=== PATIENT | female | born 1990 | race Caucasian/White ===

== ENCOUNTER → 2019-04-21 11:54 | Outpatient (CLI) | payer SELFPAY ==
--- NOTE | 2019-04-21 12:00 | US_ITS ---
STUDY: SECOND AND THIRD TRIMESTER OBSTETRICAL ULTRASOUND-LIMITED REASON FOR EXAM: Female, 28 years old dating, confirm viability LMP: 01/15/2019 TECHNIQUE: Transabdominal TECHNICAL QUALITY: Adequate. PRIOR ULTRASOUND: None. FINDINGS: There is a single intrauterine fetus. The fetus is moving throughout the exam. There is demonstrated cardiac activity with a heart rate of 136 bpm. There is a normal amniotic fluid volume. The largest amniotic fluid pocket measures 4.5 cm. . The placenta is anterior in location and is not low lying. There are Grade 0 placental changes. The cervix measures 3.3 cm in length. The bilateral adnexal regions are normal. BIOMETRY: BPD: 2.26 cm: 13 weeks, 6 days HC: 9.14 cm: 14 weeks, 1 days AC: 7.68 cm: 14 weeks, 1 days FL: 1.26 cm: 13 weeks, 6 days age by current US: 14 weeks, 1 days. CAMILA by current US: 10/19/2019. Estimated weight: 86 grams, +/- 13 grams, 48 %. US/Init OB < 14Wks US IMPRESSION: Single live intrauterine at 14 weeks, 1 day by current ultrasound with CAMILA of 10/19/2019. Heart rate at 136 bpm. No suspicious sonographic findings. Electronically Signed: Yamil Lovett MD at 16:55 EST , Service support ,
[2019-04-21 14:20] LABS: Absolute Lymphocyte Count 1.93 X10^3/uL (0.83-4.51); Absolute Neutrophil Count 6.8 X10^3/uL (2.0-7.7); Basophil# 0.02 X10^3/uL; Basophil% 0.2 % (0-1); Eosinophil# 0.07 X10^3/uL; Eosinophils% 0.7 % (0-5); Hematocrit 38.9 % (37-47); Hemoglobin 13.2 g/dL (12.0-15.0); Lymphocyte # 1.93 X10^3/ul (4.0); Lymphocyte % 20.7 % (19-41); Mean Corp Hgb Conc 33.9 g/dL (32-36); Mean Corpuscular Hgb 29.9 pg (27.0-32.0); Monocyte# 0.53 X10^3/uL; Monocyte% 5.7 % (0-10); NRBC Flagged by Analyzer 0 % (0-5); Neutrophil # 6.75 X10^3/uL (2.7-7.7); Neutrophil % 72.3 % (47-70); Platelet Count 252 K/mm3 (150-450); RBC Distribution Width CV 12.6 % (11.6-14.6); Red Blood Count 4.42 M/mm3 (4.2-5.4); White Blood Count 9.3 K/mm3 (4.4-11.0)
== END ==
LOC: US 12:00 → PAVLAB 14:02
PROVIDERS: Obstetrics & Gynecology; Referring Provider Nurse Practitioner Women's Health; Visit Provider Nurse Practitioner Women's Health
DX: Z34.90 Encounter for supervision of normal pregnancy, unspecified, unspecified trimester (principal)
CPT/HCPCS: 36415; 76801; 85025; 86850; 86900; 86901

== ENCOUNTER → 2019-07-01 11:35 | Outpatient (CLI) | payer SELFPAY ==
[2019-04-21 13:16] VITALS: BMI 24.7
[2019-07-01 11:09] VITALS: BMI 25.5
--- NOTE | 2019-07-01 11:41 | US_ITS ---
STUDY: SECOND AND THIRD TRIMESTER OBSTETRICAL ULTRASOUND REASON FOR EXAM: Female, 29 years old ANATOMY LMP: January 15, 2019. TECHNIQUE: Transabdominal TECHNICAL QUALITY: Adequate. PRIOR ULTRASOUND: Comparison is made with prior examination dated April 21, 2019. FINDINGS: There is a single intrauterine fetus. The fetus is in a cephalic presentation. There is demonstrated cardiac activity with a heart rate of 158 bpm. There is a normal amniotic fluid volume. The largest amniotic fluid pocket measures 4.9 cm x 3.6 cm. The amniotic fluid index (FRANCISCO) is within normal limits. The placenta is anterior in location and is not low lying. There are Grade 0 placental changes. The cervix measures 3 cm in length. The bilateral adnexal regions are normal. BIOMETRY: BPD: 6.2 cm: 25 weeks, 2 days HC: 23.4 cm: 25 weeks, 4 days AC: 18.9 cm: 23 weeks, 5 days FL: 4.4 cm: 24 weeks, 3 days CI: 80% FL/BPD: 70% FL/HC: FL/AC: 23% HC/AC: 1.24 age by current US: 24 weeks, 6 days. CAMILA by current US: October 15, 2019. Estimated weight: 669 grams, +/- 98 grams, 57 %. age by prior US: 24 weeks, 2 days. CAMILA by prior US: October 19, 2019. Age by LMP: 23 weeks, 6 days. CAMILA by LMP: October 22, 2019. ANATOMY: Gender: Male Cranium: Normal lateral ventricles. Normal choroid plexus. Normal cerebellum. Normal cisterna magna. Normal face, nose and lips. Chest: Normal 4-chamber heart. Abdomen/Pelvis: Normal diaphragm. Normal stomach. Normal abdominal wall. Normal cord insertion. Normal 3 vessel cord. Normal kidneys. Normal bladder. Spine: Normal cervical spine. Normal thoracic spine. Normal lumbar spine. Normal sacrum. Extremities: Normal bilateral upper extremities. Normal bilateral lower extremities. US/OB Anatomy Scan IMPRESSION: Single live intrauterine gestation with a mean gestational age of 24 weeks and 2 days. The measurements obtained today fall within the normal expected range. Electronically Signed: Wilian Mena, at 13:51 EDT , Service support ,
== END ==
PROVIDERS: Referring Provider Obstetrics & Gynecology; Visit Provider Obstetrics & Gynecology
DX: Z34.92 Encounter for supervision of normal pregnancy, unspecified, second trimester (principal); Z3A.24 24 weeks gestation of pregnancy
CPT/HCPCS: 76805

== ENCOUNTER → 2019-08-04 10:47 | Outpatient (CLI) | payer SELFPAY ==
[2019-07-01 11:09] VITALS: BMI 25.5
[2019-08-04 11:13] LABS: Absolute Lymphocyte Count 1.41 X10^3/uL (0.83-4.51); Absolute Neutrophil Count 6.5 X10^3/uL (2.0-7.7); Basophil# 0.02 X10^3/uL; Basophil% 0.2 % (0-1); Eosinophil# 0.04 X10^3/uL; Eosinophils% 0.5 % (0-5); Hematocrit 38.9 % (37-47); Lymphocyte # 1.41 X10^3/ul (4.0); Lymphocyte % 16.5 % (19-41); Mean Corp Hgb Conc 33.4 g/dL (32-36); Mean Corpuscular Volume 92.8 fL (81-99); Mean Platelet Vol. 10.3 fl (6.2-12.0); Monocyte# 0.49 X10^3/uL; Monocyte% 5.7 % (0-10); NRBC Flagged by Analyzer 0 % (0-5); Neutrophil # 6.52 X10^3/uL (2.7-7.7); Neutrophil % 76.5 % (47-70); Platelet Count 217 K/mm3 (150-450); RBC Distribution Width CV 13.1 % (11.6-14.6); RBC Distribution Width SD 44.4 fl (35.1-43.9); Red Blood Count 4.19 M/mm3 (4.2-5.4); White Blood Count 8.5 K/mm3 (4.4-11.0)
[2019-08-04 11:23] LABS: Glucose Challenge Gest 1H 50g 141 mg/dL (70-140)
== END ==
PROVIDERS: Referring Provider Obstetrics & Gynecology; Visit Provider Obstetrics & Gynecology
DX: Z34.90 Encounter for supervision of normal pregnancy, unspecified, unspecified trimester (principal)
CPT/HCPCS: 36415; 82950; 85025

== ENCOUNTER → 2019-08-26 07:12 | Outpatient (CLI) | payer SELFPAY ==
[2019-08-04 11:24] VITALS: BMI 25.5
[2019-08-26 08:15] LABS: Glucose GTT-Gestation. Fasting 91 mg/dL (<105)
[2019-08-26 08:44] LABS: Glucose GTT-Gestational 1 Hr 198 mg/dL (<190)
[2019-08-26 11:02] LABS: Glucose GTT-Gestational 3 Hr 98 L (<145)
[2019-08-26 11:04] LABS: Glucose GTT-Gestational 2 Hr 150 mg/dL (<165)
== END ==
PROVIDERS: Referring Provider Nurse Practitioner Women's Health; Visit Provider Nurse Practitioner Women's Health
DX: O99.810 Abnormal glucose complicating pregnancy (principal); Z3A.00 Weeks of gestation of pregnancy not specified
CPT/HCPCS: 36415; 82951; 82952

== ENCOUNTER → 2019-10-05 09:08 | Outpatient (CLI) | payer SELFPAY ==
[2019-09-23 11:46] VITALS: BMI 25.5
--- NOTE | 2019-10-05 09:09 | US_ITS ---
STUDY: SECOND AND THIRD TRIMESTER OBSTETRICAL ULTRASOUND - LIMITED REASON FOR EXAM: Female, 29 years old growth LMP: PRIOR ULTRASOUND: None. TECHNIQUE: Transabdominal TECHNICAL QUALITY: Adequate. FINDINGS: There is a single intrauterine fetus. The fetus is in a cephalic presentation. There is demonstrated cardiac activity with a heart rate of 139 bpm. There is a normal amniotic fluid volume. The largest amniotic fluid pocket measures 6.8 cm. The amniotic fluid index (FRANCISCO) is 10.7 cm. The placenta is anterior in location and is not low lying. There are Grade 0 placental changes. The cervix measures cm in length. BIOMETRY: BPD: 9.6: 39 weeks, 4 days HC: 33.8: 5 weeks, 5 days AC: 36.4: 40 weeks, 2 days FL: 7.3: 37 weeks, 3 days Age by LMP: 37 weeks, 4 days. CAMILA by LMP: 10/22/2019. age by current US: 39 weeks, 0 days. CAMILA by current US: 10/12/2019. Estimated weight: 04/24/2003 grams, +/- 563 grams, 94 percentile. US/OB Limited With Biometrics IMPRESSION: age by current US: 39 weeks, 0 days. CAMILA by current US: 10/12/2019. Estimated weight: 04/24/2003 grams, +/- 563 grams, 94 percentile. Electronically Signed: Ismael Drake, at 12:56 EDT Tel , Service support ,
== END ==
PROVIDERS: Referring Provider Obstetrics & Gynecology; Visit Provider Obstetrics & Gynecology
DX: O99.810 Abnormal glucose complicating pregnancy (principal); Z3A.39 39 weeks gestation of pregnancy
CPT/HCPCS: 76816; 87081

== ENCOUNTER 2019-10-17 07:10 | Inpatient (IN) | payer SELFPAY ==
[2019-04-21 13:16] VITALS: BMI 24.7
[2019-10-12 11:58] VITALS: BMI 25.5
[2019-10-17] VITALS (20 sets, daily range): BP systolic 106–130; BP diastolic 62–80; PULSE 78–98; RESP 16; TEMP 36.3–37.2; O2SAT 97–98; BMI 29.9
[2019-10-17] MEDS: Lactated Ringers 1,000 ML 50 ML IV (07:45)
[2019-10-17] MEDS: Oxytocin 30 units/NS 500 ml 30 UNITS/500 ML IV.SOLN IV (08:02)
[2019-10-17 08:06] LABS: Absolute Lymphocyte Count 1.86 X10^3/uL (0.83-4.51); Absolute Neutrophil Count 7.6 X10^3/uL (2.0-7.7); Basophil# 0.02 X10^3/uL; Basophil% 0.2 % (0-1); Eosinophil# 0.04 X10^3/uL; Eosinophils% 0.4 % (0-5); Hemoglobin 14.1 g/dL (12.0-15.0); Lymphocyte # 1.86 X10^3/ul (4.0); Lymphocyte % 17.9 % (19-41); Mean Corp Hgb Conc 34.4 g/dL (32-36); Mean Corpuscular Hgb 31.1 pg (27.0-32.0); Mean Corpuscular Volume 90.5 fL (81-99); Mean Platelet Vol. 11.1 fl (6.2-12.0); Monocyte# 0.87 X10^3/uL; Monocyte% 8.4 % (0-10); NRBC Flagged by Analyzer 0 % (0-5); Neutrophil # 7.55 X10^3/uL (2.7-7.7); Neutrophil % 72.6 % (47-70); POSITIVE COUNT YES; Platelet Count 187 K/mm3 (150-450); RBC Distribution Width CV 13.4 % (11.6-14.6); RBC Distribution Width SD 44.1 fl (35.1-43.9); Red Blood Count 4.53 M/mm3 (4.2-5.4); White Blood Count 10.4 K/mm3 (4.4-11.0)
[2019-10-17 08:07] LABS: Differential Indicated SCAN CRITERIA MET
--- NOTE | 2019-10-17 08:08 | HP.PCM_ITS ---
- Problem List (1) Rupture of membranes with clear amniotic fluid Status: Acute (2) Abnormal glucose affecting Status: Acute Comment: 3 hr GTT normal (3) History of shoulder dystocia Status: Acute Comment: EFW 8 lbs at 37w4d recommend IOL 39 weeks. (4) Positive GBS test Status: Acute Comment: PCN (5) Status: Acute Qualifiers: Comment: genetic, carrier, and ntd screening declined. anatomy normal, growth normal (6) Supervision of normal Status: Acute Qualifiers: Comment: PRR (declines most testing) CAMILA 10/22/19 boy Saad PC Li Jarred History and Physical Date of Admission: 10/17/19 Intake Vital Signs 10/12/19 BMI 25.5 10/12/19 Height 5 ft 5 in 10/12/19 Weight: 175 lb 10/12/19 BMI 29.1 10/12/19 BP 108/80 Intake Visit Reasons: 38 WK OB Chief Complaint: est ob Paver Installer Required: No Is patient in pain?: No Allergies No Known Allergies Allergy (Verified 10/12/19 11:58) Medications vitamin#30 30 mg iron-10 mg iron-folic acid 1 mg-omg3 capsule cap PO 04/21/19 [History Confirmed 10/12/19] Last Menstral Period: 01/15/19 Zika: Zika virus screening: Negative : No PFSH PFSH Family History Grandfather Heart disease Social History (Updated 10/12/19 @ 12:[address] Niurka Wan MD) Smoking Status: Never smoker alcohol intake: never substance use type: does not use caffeine: No what type of physical activity do you participate in: none seatbelt use: always do you feel safe at home: Yes additional social history: [place] Patient is stay at home mom Pregancy History 2 Elective abortions Hx Para 1 Spontaneous abortions Hx # Term Pregnancies 1 Ectopic pregnancies Hx # Pregnancies Multiple births # of living children 1 Past Pregnancies Del. Date Name GA/Weeks Outcome Route Bth Weight Infant Gen Labor Lgth Anesthesia Del Locatn Provider FOB Unknown 2016 [facility] [place] 39 live - full term 9lbs 5oz Female 4 hours none Home Dominga Stern Delivery Date: On 10/12/19 @ 12:04 Niurka Wan per patient mild shoulder dystocia, Home , had laceration repair at [place] after HPI 38 WK OB: Details: JAN MENDOZA is a 29 year old who presents for augmentation of labor for ROM. Ruptured last night for clear fluid. OB Visit CAMILA Calculator Estimated Delivery Date Method Current WG Current Estimate 10/22/19 LMP (Certain) 38w 4d Expected Delivery Route/Plan Labor Preferences- labor support person: Jarred pain management options preferred: natural, minimal intervention, hydrotherapy, IA, massage cut cord/dad catch: cord : yes PP control planned: NFP discussed possible routes of delivery and associated risks: discussed possible delivery modalities and possible indications for each including R/B/A of , VAVD, and CS. questions answered. special requests: has some preferences, all within our standard of care. Specific Issue/Plans flu vaccine: declined tdap vaccine: declined rhogam: na LARC form signed: yes movement and labor precautions reviewed. Problem list reviewed and updated with the most current plan of care details and appropriate orders placed. Relevant counseling for the gestational age provided. Continue routine care and follow up unless otherwise noted in visit notes/problem list details Initial Weight: 145 lb Date EGA Weight BP Urine Prot Glucose FHR FuHt Pres Dilation Effaced St Visit Note 04/21/19 13w 5d 144 lb (-16 oz) 150 SM- no vb cramping. 05/20/19 17w 6d 148 lb (+3 lb) 110/64 Negative Negative 150 SM- no vb crramping, discussed and plan fu visi tand US in 6 weeks due to COVID. 07/01/19 23w 6d 153 lb 8 oz (+8 lb 8 oz) 102/66 Negative Negative 150 24 SM- no vb lof good fm no regular ctx us today 08/04/19 28w 5d 164 lb 6 oz (+19 lb 6 oz) 108/64 Negative 500 g/dL 157 28 MH-NO Vb, LOF. 28 wk labs today:normal CBC, elevated GCT-3 hr GTT ordered. 08/26/19 31w 6d 167 lb (+22 lb) 110/66 Negative Negative 145 32 SM- doing 3 hr today. no vb lof good fm no regular ctx 09/09/19 33w 6d 169 lb 8 oz (+24 lb 8 oz) 102/68 Negative Negative 145 35 SM- no vb lof good fm no regular ctx 09/23/19 35w 6d 172 lb 8 oz (+27 lb 8 oz) 108/70 Negative Negative 140 38 SM no vb lof good fm no regular ctx. discussed patient had history of shoulder dystocia with previous home , mild-moderate with over 9 lb . discussed recommending growth US next visit. discussed risk of recurrence of 15% and risk of permanent neurologic injury or . patient wishes to proceed with if EFW less than previous child. consider IOL 39-40 weeks. 10/05/19 37w 4d 174 lb (+29 lb) 110/82 Negative Negative 140 39 SM- no vb lof good fm no reuglar ctx. discussed IOL at 39 because of history of shoulder dystocia. 15% chance of recurrence, discussed risks and patient wishes to proceed with , open to IOL 39 weeks. 10/12/19 38w 4d 175 lb (+30 lb) 108/80 Negative Negative 140 39 Cephalic SM- no vb lof good fm no regular ctx. plan IOL history of shoulder dystocia and currently EFW is a pound less than previous. ACOG First Trimester First Trimester: Desire for , Alcohol, Tobacco Cessation, Illicit/Recreational Drug/Substance Use, Intimate Partner Violence, Barriers to care, Unstable Housing, Communication Barriers, Environmental/Work Hazards, Anticipated Course of Care, Toxoplasmosis Precations, Use of Any m edications, Sexual activity, Exercise, Dental Care, Sauna/Hot tub use, Seat Belt use, Childbirth classes/Hospital facilities, , Travel, Indications for US and Screening for Aneuploidy Second Trimester Second Trimester: Signs and Symptoms of Labor, Selecting a care provider, Reproductive Life Planning and Care Planning; discussed Depression/Anxiety or discussed Intimate Partner Violence Diagnostics Diagnostics Diagnostics Blood Type B POSITIVE 04/21/19 Antibody Screen NEGATIVE 04/21/19 Gest Glucose Tolerance MG/DL 08/26/19 Glucose 1 Hr 50 gm 141 mg/dL (70-140) H 08/04/19 Hgb 13.0 g/dL (12.0-15.0) 08/04/19 Hct 38.9 % (37-47) 08/04/19 Details: HIV: Urine Culture: Sequential Screen: NIPT Screen: ROS Const Reports system reviewed and no additional complaints, except as docu Card Reports system reviewed and no additional complaints, except as docu Resp Reports system reviewed and no additional complaints, except as docu GI Reports system reviewed and no additional complaints, except as docu, Reports nausea Reports system reviewed and no additional complaints, except as docu Musc Reports system reviewed and no additional complaints, except as docu Exam Const General: cooperative, healthy appearing, comfortable, anxious HENPR Head: normal to inspection Nose: external nose normal Face and sinus: normal facial exam Neck Neck: normal visual inspection, full ROM, no lymphadenopathy Thyroid: thyroid normal Chest Chest palpation & inspection: normal inspection of the chest Resp Effort & Inspection: normal respiratory effort GI Inspection: normal to inspection Palpation: soft, other (gravid uterus) Other: infant vertex and appropriate size for gestational age Other: Cervical Exam: Extrem General: pedal edema Results POC Urinalysis 2 Dip (Clinic) Office Urine Glucose Negative Last Edit by Amanda Cochran on 10/12/19 12:0 1 Office Urine Protein Negative Last Edit by Amanda Cochran on 10/12/19 12:0 1 Assessment & Plan Problems 1. Positive GBS test B95.1 PCN 2. History of shoulder dystocia EFW 8 lbs at 37w4d recommend IOL 39 weeks. 3. Abnormal glucose affecting O99.810 3 hr GTT normal 4. Z34.90 genetic, carrier, and ntd screening declined. anatomy normal, growth normal 5. Supervision of normal Z34.90 PRR (declines most testing) CAMILA 10/22/19 boy Saad Li [place] Plan The increased for shoulder dystocia due to previous SD was discussed with the patient. Shoulder dystocia carries risk of injury including permanent neurologic injury, brachial nerve injury, fracture, or . After counseling the patient she chooses to proceed with and IOL early to prevent. recurrence risk of 15% discussed with patient. plan checking NOB labs previously declined in labor if no spontaneous labor, plan management for with pitocin/AROM. Pain management: prefers minimal intervention. GBS positive plan PCN Management of any complications: recommend IOL I have reviewed the [facility] and made any clinically relevant updates. Orders Orders: POC Urinalysis 2 Dip (Clinic) Today Coding Level of Care Code OB Routine Diagnoses Positive GBS test B95.1 History of shoulder dystocia Abnormal glucose affecting O99.810 Z34.90 Supervision of normal Z34.90 UPDATE- I have seen the patient and performed any clinically relevant updates to the history and physical exam.
[2019-10-17 08:27] LABS: Platelet Estimate ADEQUATE (ADEQ); Platelet Morphology LARGE
[2019-10-17 09:00] LABS: Rubella IgG 0.9 IU/mL
[2019-10-17 09:31] LABS: HIV - WCH Non-Reactive (Nonreactive); Hepatitis B Surface Antigen Non-Reactive (Nonreactive); Hepatitis C Antibody Non-Reactive (Nonreactive)
[2019-10-17 11:49] LABS: Chlamydia Trachomatis by PCR Negative (Negative); Neisserai gonorrhoeae by PCR Negative (Negative); Probe Check PASS; Sample Adequacy Control PASS; Specimen Processing Control PASS
[2019-10-17] MEDS: Oxytocin 30 units/NS 500 ml 30 UNITS/500 ML IV.SOLN 334 UNITS IV (14:31)
[2019-10-17] MEDS: 0.9% Saline Lock 10 ML Syringe IV (17:19)
--- NOTE | 2019-10-17 18:59 | PCM.OPRPT ---
Problem List (1) Rupture of membranes with clear amniotic fluid Status: Acute (2) Abnormal glucose affecting Status: Acute Comment: 3 hr GTT normal (3) History of shoulder dystocia Status: Acute Comment: EFW 8 lbs at 37w4d recommend IOL 39 weeks. (4) Positive GBS test Status: Acute Comment: PCN (5) Status: Acute Qualifiers: Comment: genetic, carrier, and ntd screening declined. anatomy normal, growth normal (6) Supervision of normal Status: Acute Qualifiers: Comment: PRR (declines most testing) CAMILA 10/22/19 boy Saad [place] Vaginal Delivery Maternal Presentation: Spontaneous Rupture of Membranes Patient is a 29-year-old at 39 weeks gestation who presented for induction of labor, however patient she admitted to spontaneous rupture of membranes last night at 8 PM. She was augmented with Pitocin. She made rapid cervical change to complete dilation. Method of Induction: Pitocin Amniotic Membrane Rupture Type: Spontaneous at home Rupture of Membrane time: 8p.m. on 10/16/2019 Amniotic Fluid Description: Clear Final CAMILA: 10/22/19 Final CAMILA Source: LMP Gestational age: 39 Weeks and 2 Days Date of Procedure: 10/17/19 Pre-Operative Diagnosis: Spontaneous rupture of membranes Post-Operative Diagnosis: Live male in MIKIE presentation, nuchal cord present x1 Surgery/ Procedure Performed: Spontaneous Vaginal Delivery Type of Anesthesia: Local with 1% lidocaine Description of Procedure: Patient began pushing and delivered the head in the MIKIE presentation. The head was delivered atraumatically and a loose nuchal cord ?1 was identified and easily reduced over the infant's head. The anterior and posterior shoulders delivered without complication followed by the rest of the and the was placed on the maternal abdomen. Delayed cord clamping was employed for approximately 60 seconds. Cord was clamped and cut and gentle traction was applied to the cord and the placenta delivered spontaneously immediately following it was noted to be intact with three-vessel cord. The perineum and vagina were inspected and noted to have a small first-degree perineal laceration which was injected with 15 cc of 1% lidocaine repaired in the standard fashion using 3-0 Vicryl rapide suture. EBL was 150 cc. Patient and tolerated delivery well. Presentation: MIKIE Placental Delivery Description: Spontaneous Placenta Disposition: [facility] Cord Vessel Description: 3 Vessels Nuchal Cord Compression: Without compression Cord Entanglement: Around neck x 1, loose Estimated Blood Loss: 150 cc A gender: Male Laceration: 1st degree Medications given after delivery: IV Pitocin Complications: None Multi Select Codes - Urinary/Genital Urinary/Genital CPT Codes: 87668 Vaginal Delivery [facility]
[2019-10-18 04:40] VITALS: BP 111/65; PULSE 82; RESP 16; TEMP 36.6
[2019-10-18 04:42] VITALS: BP 111/65; PULSE 84
--- NOTE | 2019-10-18 07:55 | PN.OBGYN_ITS ---
Patient Problems: Active and Suspected Problems (Last Reviewed 10/12/19 @ 11:58 by Amanda Cochran) Rupture of membranes with clear amniotic fluid (Acute) Subjective: Patient doing well without complaints. Tolerating PO. Ambulating and voiding without difficulty. Breast feeding without difficulty. Denies chest pain, shortness of breath, calf pain/swelling, fevers, chills, lightheadedness. - Physical Exam Vitals/I&O's: Vital Signs Temp Pulse Resp BP Pulse Ox 97.8 F 84 16 111/65 98 10/18/19 04:40 10/18/19 04:42 10/18/19 04:40 10/18/19 04:42 10/17/19 20:20 Oxygen Delivery Method Room Air Weight: 174 lb 6.17 oz Body Mass Index (BMI) 29.9 Intake and Output for Last 24 Hours 10/16/19 10/17/19 10/18/19 23:59 23:59 23:59 Intake Total 1031.90 / 1031.90 Output Total 1000 / 1000 Balance 31.90 / 31.90 General: Alert, Oriented x3 Abdomen: Soft, Non Tender, Non-Distended, - - FF below U Laboratory Results 10/17/19 07:45: WBC 10.4, RBC 4.53, Hgb 14.1, Hct 41.0, MCV 90.5, MCH 31.1, MCHC 34.4, RDW Std Deviation 44.1 H, RDW Coeff of Jacob 13.4, Plt Count 187, MPV 11.1, Immature Gran % (Auto) 0.500, Neut % (Auto) 72.6 H, Lymph % (Auto) 17.9 L, [place] % (Auto) 8.4, Eos % (Auto) 0.4, Baso % (Auto) 0.2, Absolute Neuts (auto) 7.6, Absolute Lymphs (auto) 1.86, Nucleated RBC % 0, Platelet Estimate ADEQUATE, Plt Morphology Comment LARGE 10/17/19 07:45: Blood Type B POSITIVE, Antibody Screen NEGATIVE 10/17/19 07:45: Rubella IgG Antibody 0.9 10/17/19 07:45: RPR Pending 10/17/19 07:45: Hep Bs Antigen Non-Reactive, Hepatitis C Antibody Non-Reactive, HIV 1&2 Antibody Non-Reactive 10/17/19 09:45: Chlam trachomat DNA PCR Negative, N.gonorrhoeae DNA (PCR) Negative Current Medications Acetaminophen (Tylenol) 1,000 mg PO Q8H PRN PRN PRN Reason: Pain Score 1-3/10 Bisacodyl (Dulcolax) 10 mg RECTAL UD PRN PRN Reason: If no BM Dibucaine (Dibucaine) 1 applic TOPICAL TID PRN PRN; Protocol PRN Reason: Discomfort Hydrocortisone (Hytone) 1 applic TOPICAL TID PRN PRN; Protocol PRN Reason: Discomfort Methylergonovine Maleate (Methergine) 0.2 mg IM X1 PRN PRN Reason: Excess bleeding/uterine atony Naproxen (Naprosyn) 500 mg PO Q8H PRN PRN PRN Reason: Pain Score 1-3/10 Ondansetron HCl (Zofran) 4 mg IV Q4H PRN PRN PRN Reason: Nausea Oxycodone HCl (Oxyir) 5 - 10 mg PO Q4H PRN PRN PRN Reason: Pain Score 4-10/10 Senna/Docusate Sodium (Senokot-S, Laurel-Colace) 1 - 2 tablet PO DAILY PRN PRN PRN Reason: Constipation Simethicone (Mylicon) 80 mg PO PCHS PRN PRN Reason: Indigestion/Stomach pain Sodium Chloride () 5 - 15 ml IV UD PRN PRN Reason: SALINE FLUSH Last Admin: 10/17/19 17:19 Dose: 10 ml Documented by: Medical Necessity - Tobacco Use Smoking Status: Never smoker Assessment/Plan All Active Problems (Last Reviewed 10/12/19 @ 11:58 by Amanda Cochran) Rupture of membranes with clear amniotic fluid (Acute) Positive GBS test (Acute) History of shoulder dystocia (Acute) Abnormal glucose affecting (Acute) (Acute) Supervision of normal (Acute) s/p PPD # 1 1. routine post delivery care 2. breast feeding- support given 3. rh positive 4. rubella equivocal-enc immunization. 5. home today
--- NOTE | 2019-10-18 07:58 | DCINST_ITS ---
Additional Instructions: If you experience any of the following, contact your healthcare provider. * Bleeding that soaks a pad every hour for 2 hours * Fever 100.4 or higher * Unrelieved incision or abdominal pain * Swelling, redness, discharge or bleeding from your incision or episiotomy site * Your incision begins to separate * Problems urinating (including inability to urinate or burning while urinating). * Visual changes * Severe headache * Flu-like symptoms * Pain or redness in one of both of your breasts * Pain, warmth, tenderness or swelling in your legs, especially the calf area * Frequent nausea and vomiting * Symptoms of depression or anxiety If you experience any of the following, call 911 or go to the nearest Emergency Room. * Chest pain * Problems breathing * Seizure activity * Partial or complete paralysis of a body part, slurred speech, weakness or drooping of the face, or a sudden inability to walk or hold your balance Allergies/Adverse Reactions: Allergies No Known Allergies Allergy (Verified 10/17/19 08:04) Medications to take at Discharge vitamin#30 30 mg iron-10 mg iron-folic acid 1 mg-omg3 capsule 1 cap PO DAILY 04/21/19 Naproxen [Naprosyn] 250 - 500 mg PO Q8H PRN PRN #30 tab 10/17/19 The following prescriptions were given: Naproxen [Naprosyn] 250 - 500 mg PO Q8H PRN PRN #30 tab PRN Reason: MILD PAIN Transmission Status: Received by [facility] Primary Care Physician: Care Physician,No Primary [Primary Care Provider] - Test Results: Test results from this visit will be discussed in further detail at your follow- up appointment, if applicable.
--- NOTE | 2019-10-18 07:58 | PCM.DCVAG ---
Additional Instructions: If you experience any of the following, contact your healthcare provider. Bleeding that soaks a pad every hour for 2 hours Fever 100.4 or higher Unrelieved incision or abdominal pain Swelling, redness, discharge or bleeding from your incision or episiotomy site Your incision begins to separate Problems urinating (including inability to urinate or burning while urinating). Visual changes Severe headache Flu-like symptoms Pain or redness in one of both of your breasts Pain, warmth, tenderness or swelling in your legs, especially the calf area Frequent nausea and vomiting Symptoms of depression or anxiety If you experience any of the following, call 911 or go to the nearest Emergency Room. Chest pain Problems breathing Seizure activity Partial or complete paralysis of a body part, slurred speech, weakness or drooping of the face, or a sudden inability to walk or hold your balance Allergies/Adverse Reactions: Allergies No Known Allergies Allergy (Verified 10/17/19 08:04) Medications to take at Discharge vitamin#30 30 mg iron-10 mg iron-folic acid 1 mg-omg3 capsule 1 cap PO DAILY 04/21/19 Naproxen [Naprosyn] 250 - 500 mg PO Q8H PRN PRN #30 tab 10/17/19 The following prescriptions were given: Naproxen [Naprosyn] 250 - 500 mg PO Q8H PRN PRN #30 tab PRN Reason: MILD PAIN Transmission Status: Received by [facility] Primary Care Physician: Care Physician,No Primary [Primary Care Provider] - Test Results: Test results from this visit will be discussed in further detail at your follow-up appointment, if applicable.
[2019-10-18 08:10] VITALS: BP 106/72; PULSE 90
[2019-10-18 08:22] VITALS: BP 106/72; PULSE 90; RESP 16; TEMP 36.6
[2019-10-18 13:15] VITALS: BP 111/70; PULSE 89; RESP 16; TEMP 36.8
[2019-10-18 13:30] VITALS: BP 111/71; PULSE 84
[2019-10-20 06:28] LABS: Rapid Plasmin Reagin (RPR) NONREACTIVE (NONREACTIVE)
== END 2019-10-18 16:40 | disposition home or self-care (01) | DRG 807 ==
PROVIDERS: Obstetrics & Gynecology; Admitting Provider Obstetrics & Gynecology; Visit Provider Obstetrics & Gynecology
DX: O69.81X0 Labor and delivery complicated by cord around neck, without compression, not applicable or unspecified (principal); Z37.0 Single live birth; Z3A.39 39 weeks gestation of pregnancy; O99.824 Streptococcus B carrier state complicating childbirth; O70.0 First degree perineal laceration during delivery
CPT/HCPCS: 59025; 59050; 85025; 86592; 86703; 86762; 86803; 86850; 86900; 86901; 87340; 87491; 87591; 99218; J7120; A4216; G0378

== ENCOUNTER → 2021-11-14 | Outpatient (CLI) | payer SELFPAY ==
[2021-11-14 16:08] LABS: Absolute Lymphocyte Count 2.21 X10^3/uL (0.83-4.51); Absolute Neutrophil Count 7.7 X10^3/uL (2.0-7.7); Basophil# 0.04 X10^3/uL; Basophil% 0.4 % (0-1); Eosinophil# 0.09 X10^3/uL; Eosinophils% 0.9 % (0-5); Hematocrit 37.5 % (37-47); Hemoglobin 12.7 g/dL (12.0-15.0); Lymphocyte # 2.21 X10^3/ul (0.83-4.51); Lymphocyte % 20.9 % (19-41); Mean Corp Hgb Conc 33.9 g/dL (32-36); Mean Corpuscular Volume 88.4 fL (81-99); Monocyte# 0.52 X10^3/uL; Monocyte% 4.9 % (0-10); NRBC Flagged by Analyzer 0 % (0-5); Neutrophil # 7.66 X10^3/uL (2.7-7.7); Neutrophil % 72.5 % (47-70); Platelet Count 252 K/mm3 (150-450); RBC Distribution Width CV 12.8 % (11.6-14.6); RBC Distribution Width SD 41.8 fl (35.1-43.9); Red Blood Count 4.24 M/mm3 (4.2-5.4); White Blood Count 10.6 K/mm3 (4.4-11.0)
[2021-11-15 08:40] LABS: Rubella IgG Non-Reactive (Nonreactive)
[2021-11-22 11:43] LABS: HPV APTIMA, High Risk Negative (Negative)
== END | disposition home or self-care (01) ==
PROVIDERS: Referring Provider Obstetrics & Gynecology; Visit Provider Obstetrics & Gynecology
DX: Z34.91 Encounter for supervision of normal pregnancy, unspecified, first trimester (principal)
CPT/HCPCS: 36415; 85025; 86762; 86850; 86900; 86901; 87086; 87624; 88175; G0145

== ENCOUNTER → 2021-12-31 | Outpatient (CLI) | payer SELFPAY ==
--- NOTE | 2021-12-31 12:13 | US_ITS ---
STUDY: SECOND AND THIRD TRIMESTER OBSTETRICAL ULTRASOUND REASON FOR EXAM: Female, 31 years old. Anatomy. LMP: August 19, 2021 TECHNIQUE: Transabdominal TECHNICAL QUALITY: Adequate. PRIOR ULTRASOUND: None. FINDINGS: There is a single intrauterine fetus. The fetus is in a variable presentation. There is demonstrated cardiac activity with a heart rate of 145 bpm. There is a normal amniotic fluid volume. The largest amniotic fluid pocket measures 4.6 cm. The placenta is posterior in location and is not low lying. There are Grade 0 placental changes. The cervix measures 3.49 cm in length. The adnexal regions are not visualized. BIOMETRY: BPD: 4.01 cm: 18 weeks, 1 days HC: 16.2 cm: 19 weeks, 0 days AC: 14.02 cm: 19 weeks, 3 days FL: 2.85 cm: 18 weeks, 5 days CI: 67.51 FL/BPD: 71.40 FL/HC: 17.61 FL/AC: 20.36 HC/AC: 1.16 age by current US: 18 weeks, 6 days. CAMILA by current US: May 28, 2022. Estimated weight: 269 grams, +/- 40 grams, 37 %. Age by LMP: 19 weeks, 1 days. CAMILA by LMP: May 26, 2022. ANATOMY: Gender: Female Cranium: Normal lateral ventricles. Normal choroid plexus. Normal cerebellum. Normal cisterna magna. Normal face, nose and lips. Chest: Normal 4-chamber heart. Abdomen/Pelvis: Normal diaphragm. Normal stomach. Normal abdominal wall. Normal cord insertion. Normal 3 vessel cord. Normal kidneys. Normal bladder. Spine: Normal cervical spine. Normal thoracic spine. Normal lumbar spine. Normal sacrum. Extremities: Normal bilateral upper extremities. Normal bilateral lower extremities. US/OB Anatomy Scan IMPRESSION: 1. Live single intrauterine at 18 weeks, 6 days. CAMILA is May 28, 2022. 2. EFW of 269 g. 3. Adequate amniotic fluid. 4. Posterior grade 0 placenta. 5. Variable presentation. 6. No visualized anatomic abnormality. Electronically Signed: Ben Govea DO at 16:58 EST ,
== END | disposition home or self-care (01) ==
LOC: OPUS 12:12
PROVIDERS: Visit Provider Obstetrics & Gynecology
DX: Z34.90 Encounter for supervision of normal pregnancy, unspecified, unspecified trimester (principal); Z3A.18 18 weeks gestation of pregnancy
CPT/HCPCS: 76805

== ENCOUNTER → 2022-02-27 | Outpatient (CLI) | payer SELFPAY ==
[2022-02-27 11:08] LABS: Absolute Lymphocyte Count 1.34 X10^3/uL (0.83-4.51); Basophil# 0.01 X10^3/uL; Basophil% 0.1 % (0-1); Eosinophil# 0.03 X10^3/uL; Eosinophils% 0.3 % (0-5); Hematocrit 34.5 % (37-47); Hemoglobin 11.9 g/dL (12.0-15.0); Lymphocyte # 1.34 X10^3/ul (0.83-4.51); Lymphocyte % 15.2 % (19-41); Mean Corp Hgb Conc 34.5 g/dL (32-36); Mean Corpuscular Hgb 31.1 pg (27.0-32.0); Mean Corpuscular Volume 90.1 fL (81-99); Mean Platelet Vol. 9.7 fl (6.2-12.0); Monocyte# 0.39 X10^3/uL; Monocyte% 4.4 % (0-10); NRBC Flagged by Analyzer 0 % (0-5); Neutrophil # 6.99 X10^3/uL (2.7-7.7); Neutrophil % 79.5 % (47-70); Platelet Count 213 K/mm3 (150-450); RBC Distribution Width CV 13.2 % (11.6-14.6); RBC Distribution Width SD 43.7 fl (35.1-43.9); Red Blood Count 3.83 M/mm3 (4.2-5.4); White Blood Count 8.8 K/mm3 (4.4-11.0)
[2022-02-27 11:19] LABS: Glucose Challenge Gest 1H 50g 124 mg/dL (70-140)
[2022-02-27 11:56] LABS: HIV - WCH Non-Reactive (Nonreactive); Syphilis Antibodies Non-reactive
== END | disposition home or self-care (01) ==
PROVIDERS: Referring Provider Obstetrics & Gynecology; Visit Provider Obstetrics & Gynecology
DX: O09.90 Supervision of high risk pregnancy, unspecified, unspecified trimester (principal)
CPT/HCPCS: 36415; 82950; 85025; 86703; 86780

== ENCOUNTER → 2022-04-25 | Outpatient (CLI) | payer SELFPAY ==
--- NOTE | 2022-04-25 11:07 | US_ITS ---
EXAM: US , LIMITED CLINICAL INDICATION: growth TECHNIQUE: Real-time limited ultrasound of the maternal uterus with image documentation. This report was created using Flash Valet report generation technology. COMPARISON: None. FINDINGS: FETUS: Single intrauterine gestation. GESTATIONAL AGE: Composite gestational age is 35 weeks 1 day. CAMILA: 05/29/2022. EFW: Estimated weight is 2705 g corresponding to the 48th percentile. BPD: 35 weeks 5 days. HC: 35 weeks 3 days. AC: 35 weeks 5 days. FL: 34 weeks 4 days. POSITION: Cephalic presentation. HEART RATE: cardiac activity is identified at 153 bpm. PLACENTA: Placenta is fundal without placenta previa. AMNIOTIC FLUID: Amniotic fluid index is 11.9 cm. CERVIX: Cervical length is 3.3 cm. US/OB Limited With Biometrics IMPRESSION: Single live intrauterine at approximately 35 weeks and 1 day. No specific abnormality. Electronically Signed: Pierre Resendiz MD at 14:21 EST ,
== END | disposition home or self-care (01) ==
LOC: US 11:06
PROVIDERS: Visit Provider Obstetrics & Gynecology
DX: Z87.59 Personal history of other complications of pregnancy, childbirth and the puerperium (principal)
CPT/HCPCS: 76816

== ENCOUNTER → 2022-05-02 | Outpatient (CLI) | payer SELFPAY | END | disposition home or self-care (01) | LOC: LABSPEC 14:10 | PROVIDERS: Visit Provider Advanced Practice Midwife | DX: Z34.93 Encounter for supervision of normal pregnancy, unspecified, third trimester (principal); Z3A.36 36 weeks gestation of pregnancy | CPT/HCPCS: 87081 ==

== ENCOUNTER 2022-05-19 07:05 | Inpatient (IN) | payer SELFPAY ==
[2022-05-19] VITALS (19 sets, daily range): BP systolic 103–141; BP diastolic 57–86; PULSE 87–112; RESP 18; TEMP 36.1–36.9; O2SAT 98; BMI 27.8
[2022-05-19] MEDS: Lactated Ringers 1,000 ML 50 ML IV (07:45)
[2022-05-19 08:01] LABS: Absolute Lymphocyte Count 1.17 X10^3/uL (0.83-4.51); Absolute Neutrophil Count 5.2 X10^3/uL (2.0-7.7); Basophil# 0.04 X10^3/uL; Basophil% 0.5 % (0-1); Eosinophil# 0.01 X10^3/uL; Eosinophils% 0.1 % (0-5); Hematocrit 41.9 % (37-47); Hemoglobin 14.2 g/dL (12.0-15.0); Lymphocyte # 1.17 X10^3/ul (0.83-4.51); Lymphocyte % 15.6 % (19-41); Mean Corp Hgb Conc 33.9 g/dL (32-36); Mean Corpuscular Hgb 30.8 pg (27.0-32.0); Mean Corpuscular Volume 90.9 fL (81-99); Mean Platelet Vol. 10.7 fl (6.2-12.0); Monocyte% 13.4 % (0-10); NRBC Flagged by Analyzer 0 % (0-5); Neutrophil # 5.21 X10^3/uL (2.7-7.7); Neutrophil % 69.7 % (47-70); Platelet Count 180 K/mm3 (150-450); RBC Distribution Width CV 13.1 % (11.6-14.6); RBC Distribution Width SD 43.5 fl (35.1-43.9); Red Blood Count 4.61 M/mm3 (4.2-5.4); White Blood Count 7.5 K/mm3 (4.4-11.0)
[2022-05-19] MEDS: 0.9% Normal Saline Single 100 ML IV.SOLN. INTRA-UTER (08:15)
[2022-05-19] MEDS: Oxytocin 15 Units/NS 250ml 15 UNITS/250 ML IV.SOLN 2 UNITS IV (08:22)
--- NOTE | 2022-05-19 08:35 | HP.PCM.OB_ITS ---
HPI - General General Date of Admission: 05/19/22 HPI Narrative JAN MENDOZA, is a 31 F who presents tp for elective IOL with history of shoulder dystocia with first delivery. growth at 37+5 48% EFW 8 pounds. 27 poound weight gain in . GCT negative. Maternal Data Information CAMILA Calculator Estimated Delivery Date Method Current WG Current Estimate 05/26/22 LMP (Certain) 39w 0d PFSH PFSH Medical History (Updated 05/19/22 @ 08:40 by Judy Thibodeaux CNM) Abnormal glucose affecting History of blood transfusion Positive GBS test hemorrhage Rupture of membranes with clear amniotic fluid Supervision of normal Home Medications vitamin#30 30 mg iron-10 mg iron-folic acid 1 mg-omg3 capsule 1 cap PO DAILY 04/21/19 [History Last Taken 10/17/19 05:30] Allergy/AdvReac Type Severity Reaction Status Date / Time acetaminophen [From Tylenol] AdvReac Intermediate Other Verified 05/16/22 11:43 Family History Grandfather Heart disease Social History adopted: No household members: spouse and children housing: house number of children: 2 current occupational status: unemployed current occupational exposures/hazards: No pets and animals: No history of recent travel: Yes ([place] in September) out of state: Yes out of country: No Smoking Status: Never smoker alcohol intake: never substance use type: does not use well-balanced diet: daily or most days caffeine: No eating out: rarely or never during the past year weight has: remained stable what type of physical activity do you participate in: none giuliana/rastafari: Judaism seatbelt use: always do you feel safe at home: Yes additional social history: [place] Patient is stay at home mom History 3 Elective abortions Hx Para 2 Spontaneous abortions Hx # Term Pregnancies 2 Ectopic pregnancies Hx # Pregnancies Multiple births # of living children 2 Past Pregnancies Del. Date Name GA/Weeks Outcome Route Bth Weight Gen Labor Lgth Anesthesia Del Locatn Provider FOB Unknown 2016 [facility] [place] 39 live - full term 9lbs 5o z Female 4 hours none Home Dominga Stern 10/17/19 [place] live - full term Male [facility] [place] Delivery Date: Last Updated by: Niurka Wan MD per patient mild shoulder dystocia, Home , had laceration repair at [place] after Visit Details Expected Delivery Route/Plan Labor Preferences- physician missed last delivery due to precip delivery CB/BF classes: declines labor support person: Jarred labor intervention preferences: [] pain management options preferred: declines Epidural cut cord/dad catch: dad will try- was unable to do last time. : yes PP control planned: wants to discuss later discussed possible routes of delivery and associated risks: [] special requests: will decline Vit K/erythromycin. if GBS positive please run IV antibiotic rate slower(had significant burning previously) Plans Covid status: [] Flu vaccine: declines Tdap vaccine: declines Rhogam: na LARC form signed: complete Problem list reviewed and updated with the most current plan of care details and appropriate orders placed. Relevant counseling for the gestational age provided. Continue routine care and follow up unless otherwise noted in visit notes/problem list details OB Flowsheet Initial Weight: Not Recorded Date -?-?-?-?-?-?-?-?-?-?-?-?- EGA Weight BP Urine Prot -?-?-?-?-?-?-?-?-?-?-?-?- Glucose FHR FuHt Pres Dilation -?-?-?-?-?-?-?-?-?-?-?-?- Effaced St Visit Note 11/14/21 -?-?-?-?-?-?-?-?-?-?-?-?- 12w 3d 135 lb 109/70 -?-?-?-?-?-?-?-?-?-?-?-?- 160 -?-?-?-?-?-?-?-?-?-?-?-?- SM- CRL 4.8cm co ns with lmp 12/09/21 -?-?-?-?-?-?-?-?-?-?-?-?- 16w 0d 136 lb 4 oz 108/74 Nega tive -?-?-?-?-?-?-?-?-?-?-?-?- Negative 140 16 -?-?-?-?-?-?-?-?-?-?-?-?- LC- no vb,darshan naranjo. doing well. will scheduled anatomy. 12/31/21 -?-?-?-?-?-?-?-?-?-?-?-?- 19w 1d 137 lb 4 oz 112/78 Nega tive -?-?-?-?-?-?-?-?-?-?-?-?- Negative 154 -?-?-?-?-?-?-?-?-?-?-?-?- MH-No VB. Vaniin g movement. Anatomy US today 01/29/22 -?-?-?-?-?-?-?-?-?-?-?-?- 23w 2d 143 lb 109/71 Negative -?-?-?-?-?-?-?-?-?-?-?-?- Negative 144 24 -?-?-?-?-?-?-?-?-?-?-?-?- JV- no lof, v ag inal bleeding, or de fm. Plan for gct next visit. growth scan at 36-38 weeks and plan IOL at 39 weeks 02/27/22 -?-?-?-?-?-?-?-?-?-?-?-?- 27w 3d 150 lb 99/66 Negative -?-?-?-?-?-?-?-?-?-?-?-?- Negative 130 27 -?-?-?-?-?-?-?-?-?-?-?-?- JV- passed her 1 hr and normal cbc. 03/12/22 -?-?-?-?-?-?-?-?-?-?-?-?- 29w 2d 152 lb 2 oz 108/70 Nega tive -?-?-?-?-?-?-?-?-?-?-?-?- Negative 130 29 -?-?-?-?-?-?-?-?-?-?-?-?- LC- no vb/ctx/lo f. good fm. LARC completed. 03/28/22 -?-?-?-?-?-?-?-?-?-?-?-?- 31w 4d 155 lb 6 oz 120/78 Nega tive -?-?-?-?-?-?-?-?-?-?-?-?- Negative 135 32 -?-?-?-?-?-?-?-?-?-?-?-?- LC-no vb/ctx/lof . good fm.declines tdap. 04/08/22 -?-?-?-?-?-?-?-?-?-?-?-?- 33w 1d 156 lb 8 oz 112/75 Nega tive -?-?-?-?-?-?-?-?-?-?-?-?- Negative 133 35 -?-?-?-?-?-?-?-?-?-?-?-?- JV- no lof, vagi nal bleeding, or dec fm. plan for growth scan at 36 for shoulder dystocia. 04/25/22 -?-?-?-?-?-?-?-?-?-?-?-?- 35w 4d 159 lb 6 oz 112/76 Nega tive -?-?-?-?-?-?-?-?-?-?-?-?- Negative 134 36 Cephalic -?-?-?-?-?-?-?-?-?-?-?-?- LC-no lof/vb/ctx . good fm. no concerns today, obtaining growth scan today. 05/02/22 -?-?-?-?-?-?-?-?-?-?-?-?- 36w 4d 162 lb 2 oz 118/72 Nega tive -?-?-?-?-?-?-?-?-?-?-?-?- Negative 145 37 Cephalic -?-?-?-?-?-?-?-?-?-?-?-?- KW-no lof/ctx/vb . good fm. GBS done today. growth scan 48% 05/09/22 -?-?-?-?-?-?-?-?-?-?-?-?- 37w 4d 161 lb 8 oz 118/79 -?-?-?-?-?-?-?-?-?-?-?-?- 150 38 Cephalic -?-?-?-?-?-?-?-?-?-?-?-?- KW-no lof/ctx/vb . good fm. GBS neg. declines VE today. 05/16/22 -?-?-?-?-?-?-?-?-?-?-?-?- 38w 4d 164 lb 4 oz 116/78 Nega tive -?-?-?-?-?-?-?-?-?-?-?-?- Negative 135 39 Cephalic -?-?-?-?-?-?-?-?-?-?-?-?- 05/19/22 -?-?-?-?-?-?-?-?-?-?-?-?- 39w 0d 162 lb 9.6 oz 133/81 -?-?-?-?-?-?-?-?-?-?-?-?- -?-?-?-?-?-?-?-?-?-?-?-?- NST FHR Rate Baby A Baseline: 145 Variability:: Moderate Accelerations:: 15 x 15 Decelerations:: None NST Reactive:: Yes FHR Category:: Category I Uterine Activity:: q4-5 minutes, not feeling ROS Cardiovascular Cardiovascular: Denies abdominal pain, chest pain, diaphoresis or dyspnea Respiratory/Chest Respiratory/Chest: Denies change in mental status, chest congestion, chest tightness, cough, shortness of breath at rest, shortness of breath with exertion, breast mass, breast pain, breast skin changes, breast swelling, change in breast shape or nipple discharge Genitourinary Genitourinary: Reports change in urinary stream Musculoskeletal Musculoskeletal: Reports none Integumentary Integumentary: Reports none Neurologic Neurologic: Reports none Psychiatric Psychiatric: Reports none Endocrine Endocrinology: Reports none Hematologic/Lymphatic Hematologic/Lymphatic: Reports none Allergic/Immunologic Allergic/Immunologic: Reports none Vital Signs Vital Signs Vital Signs: 05/19/22 07:27 05/19/22 07:27 05/19/22 07:29 Temperature Temperature Source Temporal Pulse Rate 112 H Blood Pressure 133/81 H BP Systolic 133 BP Diastolic 81 05/19/22 07:29 Temperature 97.2 F L Temperature Source Pulse Rate Blood Pressure BP Systolic BP Diastolic Weight Weight: 162 lb 9.6 oz Body Mass Index (BMI) 27.8 Physical Exam Const alert, oriented x3 and no apparent distress General Appearance: cooperative, comfortable and well kempt Orientation / Consciousness: awake and oriented to person Exam Limitations: no limitations HEENT normocephalic Neck full ROM Chest inspection of chest normal Resp normal respiratory effort, normal air movement and no retractions Effort and Inspection: able to speak in complete sentences and symmetric chest movement Cardio regular rate Peripheral Pulses: pulses 2+ throughout GI normal to inspection, nondistended, normoactive bowel sounds Inspection: gravid no CVA tenderness and appearance of the vagina normal External Female Exam: normal appearance of the urethra; Negative for external lesion OB / External & Speculum: external exam normal Manual OB Exam: estimated gestational size appropriate and presentation cephalic Uterus Palpation: Negative for uterus tender Extremity normal to inspection Skin no rashes or lesions noted Neuro deep tendon reflexes 2+ bilaterally and gait normal Motor Exam: strength 5/5 throughout and clonus absent Psych Activity / Motor Behavior: appropriate eye contact Speech: normal speech Labs Labs Labs: Blood Type B POSITIVE Antibody Screen NEGATIVE Hct 41.9 % (37-47) Hgb 14.2 g/dL (12.0-15.0) Obstetrics US Syphilis Total Ab Non-reactive Rubella IgG Antibody Non-Reactive (Nonreactive) Hep Bs Antigen Non-Reactive (Nonreactive) HIV 1&2 Antibody Non-Reactive (Nonreactive) Glucose 1 Hr 50 gm 124 mg/dL (70-140) Rhogam given: No Assessment & Plan (1) Encounter for induction of labor: COMMENT: /-3, midposition. r/b/a discussed and figueroa bulb and pit IOL started PLAN: Soco CATES updated on admission, exam and IOL methods and agrees with above plan of care.
[2022-05-19 09:34] LABS: Hepatitis B Surface Antigen Non-Reactive (Nonreactive); Hepatitis C Antibody Non-Reactive (Nonreactive); Syphilis Antibodies Non-reactive
--- NOTE | 2022-05-19 13:07 | PN.OBGYN_ITS ---
Objective Data Objective Data Vital Signs: Vital Signs Temp Pulse BP Pulse Ox 97.4 F L 110 H 119/77 98 05/19/22 12:28 05/19/22 12:28 05/19/22 12:28 05/19/22 09:58 Weight: 162 lb 9.6 oz Body Mass Index (BMI) 27.8 Intake & Output: Intake and Output for Last 24 Hours 05/17/22 05/18/22 05/19/22 23:59 23:59 23:59 Intake Total 22.80 / 22.80 Balance 22.80 / 22.80 Lab / Micro Data Result Diagrams: 05/19/22 07:45 Labs: Laboratory Results - last 24 hr 05/19/22 07:45: WBC 7.5, RBC 4.61, Hgb 14.2, Hct 41.9, MCV 90.9, MCH 30.8, MCHC 33.9, RDW Std Deviation 43.5, RDW Coeff of Jacob 13.1, Plt Count 180, MPV 10.7, Immature Gran % (Auto) 0.700, Neut % (Auto) 69.7, Lymph % (Auto) 15.6 L, [place] % (Auto) 13.4 H, Eos % (Auto) 0.1, Baso % (Auto) 0.5, Absolute Neuts (auto) 5.2, Absolute Lymphs (auto) 1.17, Nucleated RBC % 0 05/19/22 07:45: Blood Type B POSITIVE, Antibody Screen NEGATIVE 05/19/22 07:45: Syphilis Total Ab Non-reactive, Hep Bs Antigen Non-Reactive, Hepatitis C Antibody Non-Reactive Assessment & Plan (1) Encounter for induction of labor: COMMENT: /-3, midposition. r/b/a discussed and figueroa bulb and pit IOL started (2) History of shoulder dystocia: COMMENT: Growth US 48% EFW 8 lbs at 37w4d(for G2) recommend IOL 39 weeks. (3) Varicose vein of leg: COMMENT: One above right knee, 1 below left knee (4) : QUALIFIERS: Weeks of gestation: 38 weeks Qualified Code(s): Z3A.38 - 38 weeks gestation of COMMENT: GBS neg, anatomy nl, discussed genetic and carrier testing, declined TDAP (5) Supervision of high risk , antepartum: COMMENT: PRR sp labs., CAMILA 05/26/22, Saad Lopez Jarred (6) Rubella non-immune status, antepartum: COMMENT: mmr pp PLAN: Plan 31 yo at 39 weeks, elective IOL for hx of shoulder dystocia. figueroa balloon out at 0930. 4/80/-1, midposition on 8mu of Pitocin frequent position changes feeling contractions more current tracin FHT: Moderate variability reactive no decelerations category I tracing [place]: every 2-3 minutes Contractions reviewed tracing abnormalities since last note: none A/P: approaching active labor. stable maternal/ status increase pitocin per protocol recheck cervical exam in 2 hours, if no change will AROM
[2022-05-19 14:13] LABS: Chlamydia Trachomatis by PCR Negative (Negative); Neisserai gonorrhoeae by PCR Negative (Negative); Probe Check PASS; Sample Adequacy Control PASS; Specimen Processing Control PASS
--- NOTE | 2022-05-19 16:04 | EX.PCM.OBRPT ---
Assessment & Plan (1) (spontaneous vaginal delivery): COMMENT: IOL, , girl: ROBERTO Jo Maternal Data Information CAMILA Calculator Estimated Delivery Date Method Current WG Current Estimate 05/26/22 LMP (Certain) 39w 0d Final CAMILA: 05/26/22 Final CAMILA Source: LMP Vaginal Delivery Maternal Presentation Maternal Presentation: Elective Induction (hx of shoulder dystocia) Type of Induction: Pitocin and [place] Bulb Operative Information Date of Procedure: 05/19/22 Pre-Operative Diagnosis: Post-Operative Diagnosis: Surgery / Procedure Performed: Spontaneous Vaginal Delivery Type of Anesthesia: None Estimated Blood Loss: 200 Time of Delivery: 15:51 Findings Description of Procedure: Patient began pushing and delivered the head in the FERNIE presentation. The head was delivered atraumatically. The anterior and posterior shoulders delivered without complication followed by the rest of the and the was placed on the maternal abdomen. Delayed cord clamping was employed for approximately 60 seconds. Cord was clamped and cut and gentle traction was applied to the cord and the placenta delivered spontaneously immediately following it was noted to be intact with three-vessel cord. The perineum and vagina were inspected and noted to have no laceration. EBL was 200cc. Patient and infant tolerated delivery well. Presentation: Vertex Amniotic Membrane Rupture Type: Artificial (1430, clear) Amniotic Fluid Description: Clear Placental Delivery Description: Spontaneous Placenta Disposition: [facility] Cord Vessel Description: 3 Vessels Cord Entanglement: None Infant A Gender: Female (1 minute): 8 (5 minute): 9 Post Vaginal Delivery Medications Given After Delivery: IV Pitocin (per protocol) Episiotomy Description: None Laceration: None Multi Select Codes Urinary/Genital Urinary/Genital CPT Codes: 41704 Vaginal Delivery global pkg (CNM DELIVERY)
[2022-05-19] MEDS: Oxytocin 15 Units/NS 250ml 15 UNITS/250 ML IV.SOLN 83 UNITS IV (16:30)
--- NOTE | 2022-05-19 20:40 | NURSING ---
Pt declined MMR vaccine.
[2022-05-20 00:26] VITALS: BP 109/76; PULSE 97; RESP 16; TEMP 36.6
[2022-05-20 03:08] VITALS: BP 93/55; PULSE 87; RESP 15; TEMP 36.4
--- NOTE | 2022-05-20 07:49 | PCM.PN.OB ---
Subjective Subjective Patient doing well without complaints. Tolerating PO. Ambulating and voiding without difficulty. Feeding well. Denies chest pain, shortness of breath, calf pain/swelling, fevers, chills, lightheadedness. Objective Data Objective Data Vital Signs: Vital Signs Temp Pulse Resp BP Pulse Ox O2 Del Method 97.6 F L 87 15 93/55 L 98 Room Air 05/20/22 03:08 05/20/22 03:08 05/20/22 03:08 05/20/22 03:08 05/19/22 09:58 05/20/22 03:08 Oxygen Delivery Method Room Air Weight: 162 lb 9.6 oz Body Mass Index (BMI) 27.8 Intake & Output: Intake and Output for Last 24 Hours 05/18/22 05/19/22 05/20/22 23:59 23:59 23:59 Intake Total 900.59 / 900.59 Output Total 800 / 800 Balance 100.59 / 100.59 Lab / Micro Data Result Diagrams: 05/19/22 07:45 Labs: Laboratory Results - last 24 hr 05/19/22 07:45: WBC 7.5, RBC 4.61, Hgb 14.2, Hct 41.9, MCV 90.9, MCH 30.8, MCHC 33.9, RDW Std Deviation 43.5, RDW Coeff of Jacob 13.1, Plt Count 180, MPV 10.7, Immature Gran % (Auto) 0.700, Neut % (Auto) 69.7, Lymph % (Auto) 15.6 L, [place] % (Auto) 13.4 H, Eos % (Auto) 0.1, Baso % (Auto) 0.5, Absolute Neuts (auto) 5.2, Absolute Lymphs (auto) 1.17, Nucleated RBC % 0 05/19/22 07:45: Blood Type B POSITIVE, Antibody Screen NEGATIVE 05/19/22 07:45: Syphilis Total Ab Non-reactive, Hep Bs Antigen Non-Reactive, Hepatitis C Antibody Non-Reactive 05/19/22 10:34: Chlam trachomat DNA PCR Negative, N.gonorrhoeae DNA (PCR) Negative Physical Exam Const alert and oriented x3 HEENT normocephalic Eyes PERRL Neck full ROM Resp normal respiratory effort GI soft to palpation GI Narrative: FF below U Assessment & Plan (1) (spontaneous vaginal delivery): COMMENT: IOL, , girl: ROBERTO Jo PLAN: Plan s/p PPD # 1 1. routine post delivery care 2. breast feeding- support given 3. rh positive 4. rubella nonimmune 5. home today
[2022-05-20] MEDS: Naproxen 500 MG Tablet PO (07:52)
[2022-05-20 07:57] VITALS: BP 107/79; PULSE 100; RESP 15; TEMP 36.3
[2022-05-20 12:07] VITALS: BP 100/68; PULSE 86; RESP 15; TEMP 36.2
[2022-05-20 15:50] VITALS: BP 120/79; PULSE 85; RESP 16; TEMP 36.2
== END 2022-05-20 17:27 | disposition home or self-care (01) | DRG 807 ==
PROVIDERS: Admitting Provider Registered Nurse; Referring Provider Registered Nurse; Visit Provider Registered Nurse
DX: O22.03 Varicose veins of lower extremity in pregnancy, third trimester (principal); Z37.0 Single live birth; I83.93 Asymptomatic varicose veins of bilateral lower extremities; Z3A.39 39 weeks gestation of pregnancy; Z28.39 Other underimmunization status
CPT/HCPCS: 59025; 59050; 85025; 86780; 86803; 86850; 86900; 86901; 87340; 87491; 87591; 99221; J7120; G0378